=== PATIENT | female | born 1955 | race Caucasian/White ===

== ENCOUNTER → 2021-01-31 | Outpatient (CLI) | payer MEDICARE, OTHER ==
--- NOTE | 2021-01-31 08:47 | REP ---
INDICATION: ELEVATED LFT'S COMPARISON: 03/07/2016 TECHNIQUE: Real time castañeda scale ultrasound examination using curved array transducer. FINDINGS: Liver is mildly enlarged measuring 20 cm in craniocaudal length and demonstrates coarsened hyperechoic heterogeneous echotexture suggesting fatty infiltration and hepatocellular disease. No focal hepatic lesion identified. Pancreas is incompletely evaluated due to interposed bowel gas. The gallbladder is surgically absent. No biliary ductal dilatation is appreciated and the common bile duct measures 5.3 mm diameter. Right kidney is normal in reniform shape without hydronephrosis and measures 11.2 x 5.0 x 4.6 cm. No ascites in the visualized right upper quadrant. IMPRESSION: Mild hepatomegaly with hepatosteatosis and hepatocellular disease suspected. <Electronically signed by Hector [place] > 01/31/21 [id number]
== END ==
LOC: M RAD 08:00
PROVIDERS: ATTEND Physician Assistant
DX: R74.01 Elevation of levels of liver transaminase levels (principal); Z85.3 Personal history of malignant neoplasm of breast